=== PATIENT | female | born 1980 | race Two or more races ===

== ENCOUNTER 2025-02-19 11:45 | Inpatient (IN) | payer OTHER ==
[~2025-02-19] VITALS: Ht 157.5 cm; Wt 55.8 kg
[2025-02-19] MEDS ORDERED: INDERAL XL80 MG (12:44)
[2025-02-19] MEDS ORDERED: SYNTHROID100 MCG PO (12:44)
[2025-02-19] MEDS ORDERED: ZESTRIL2.5 MG PO (12:44)
[2025-02-19 13:18] VITALS: BP 103/65
[2025-02-19 13:23] VITALS: BP 132/86
[2025-02-19 15:08] LABS: RH POSITIVE
[2025-02-26] MEDS ORDERED: METRONIDAZOLE/SODIUM CHLORIDE 500 MG/100 ML PIGGYBACK IV ONE (09:00)
[2025-02-26] MEDS ORDERED: CEFAZOLIN SODIUM 1,000 MG VIAL IV ONE (09:00)
[2025-02-26] MEDS ORDERED: POVIDONE-IODINE 118 ML BOTT TOP ONE (09:00)
[2025-02-26] MEDS ORDERED: SURGIFLO APPLICATOR 1 EACH APPL TOP ONE (11:15)
[2025-02-26] MEDS ORDERED: HEMOSTATIC MATRIX WITH THROMBIN KIT TOP ONE (11:15)
[2025-02-26] MEDS ORDERED: MORPHINE SULFATE 4 MG/ML VIAL IV ONE (12:45)
[2025-02-26] MEDS ORDERED: KETOROLAC TROMETHAMINE 30 MG VIAL IV SCH (12:51)
[2025-02-26] MEDS ORDERED: RINGERS SOLUTION,LACTATED 1,000 ML IV SCH (13:00)
[2025-02-26] MEDS ORDERED: KETOROLAC TROMETHAMINE 30 MG VIAL IV ONE (13:10)
[2025-02-26] MEDS ORDERED: BUPIVACAINE HCL 30 ML VIAL IJ ONE (13:15)
[2025-02-26] MEDS ORDERED: ENALAPRILAT DIHYDRATE 1.25 MG/ML VIAL IV PRN (16:45)
[2025-02-26 17:09] VITALS: BP 103/65
[2025-02-27 00:37] VITALS: BP 98/63
[2025-02-27] MEDS ORDERED: LEVOTHYROXINE SODIUM 100 MCG TABLET PO SCH (06:00)
[2025-02-27 06:42] LABS: BASO % 0.5 % (0.1-1.2); EOS # 0.02 (0.04-0.54); EOS % 0.3 % (0.7-7.0); LYMPH # 1.17 (1.18-3.74); LYMPH % 18.7 % (19.3-53.1); MEAN PLATELET VOLUME 9.20 fl (9.4-12.4); MONO # 0.51 (0.24-0.82); MONO % 8.2 % (4.7-12.5); NEUT # 4.50 (1.56-6.13); NEUT % 72.0 % (34.0-71.1); RED CELL DISTRIBUTION WIDTH 13.5 % (11.6-14.4)
[2025-02-27 08:23] VITALS: BP 114/73; O2SAT 100
[2025-02-27] MEDS ORDERED: PROPRANOLOL HCL 80 MG TABLET PO SCH (09:00)
[2025-02-27] MEDS ORDERED: LISINOPRIL 2.5 MG TABLET PO SCH (09:00)
== END 2025-02-27 09:41 | disposition home or self-care (01) | DRG 356 ==
LOC: O/R 02-26 08:22 → OB/GYN 02-26 08:22 → SURG 02-26 11:45 → OB/GYN 02-26 13:12 → SURG 02-26 13:45 → OB/GYN 02-27 09:41
PROVIDERS: ADMIT Student in an Organized Health Care Education/Training Program; ATTEND Student in an Organized Health Care Education/Training Program
PROC: 0UT94ZZ Resection of Uterus, Percutaneous Endoscopic Approach (ICD-10-PCS; 2025-02-26)
PROC: 0UT74ZZ Resection of Bilateral Fallopian Tubes, Percutaneous Endoscopic Approach (ICD-10-PCS; 2025-02-26)
PROC: 0TN74ZZ Release Left Ureter, Percutaneous Endoscopic Approach (ICD-10-PCS; 2025-02-26)
PROC: 0UBF4ZZ Excision of Cul-de-sac, Percutaneous Endoscopic Approach (ICD-10-PCS; 2025-02-26)
PROC: 0TJB8ZZ Inspection of Bladder, Via Natural or Artificial Opening Endoscopic (ICD-10-PCS; 2025-02-26)
PROC: 0DBW4ZZ Excision of Peritoneum, Percutaneous Endoscopic Approach (ICD-10-PCS; principal; 2025-02-26 13:45)
DX: K66.0 Peritoneal adhesions (postprocedural) (postinfection) (principal); K68.2 Retroperitoneal fibrosis; N80.03 Adenomyosis of the uterus; R19.09 Other intra-abdominal and pelvic swelling, mass and lump; N93.9 Abnormal uterine and vaginal bleeding, unspecified; Z90.710 Acquired absence of both cervix and uterus; N80.319 Endometriosis of the anterior cul-de-sac, unspecified depth; N80.329 Endometriosis of the posterior cul-de-sac, unspecified depth; N80.352 Endometriosis of the left pelvic sidewall, unspecified depth; N72 Inflammatory disease of cervix uteri

== ENCOUNTER 2025-03-24 21:09 | Emergency (ER) | payer OTHER ==
[~2025-03-24] VITALS: Ht 160 cm; Wt 72.6 kg
[~2025-03-24 21:09] MED LIST: INDERAL XL80 MG; SYNTHROID100 MCG PO; ZESTRIL2.5 MG PO
[2025-03-24] MEDS ORDERED: 0.9 % SODIUM CHLORIDE 1,000 ML IV STA (22:32)
[2025-03-24 23:31] LABS: BASO % 0.8 % (0.1-1.2); EOS # 0.05 (0.04-0.54); EOS % 0.7 % (0.7-7.0); LYMPH # 1.00 (1.18-3.74); LYMPH % 13.8 % (19.3-53.1); MEAN PLATELET VOLUME 9.00 fl (9.4-12.4); MONO # 0.45 (0.24-0.82); MONO % 6.2 % (4.7-12.5); NEUT # 5.70 (1.56-6.13); NEUT % 78.4 % (34.0-71.1); RED CELL DISTRIBUTION WIDTH 12.6 % (11.6-14.4)
[2025-03-24] MEDS ORDERED: CLONAZEPAM 1 MG TABLET PO STA (23:31)
[2025-03-24 23:49] LABS: INR 1.05
[2025-03-24 23:53] LABS: ALT/SGPT 17.0 U/L (12-78); AST/SGOT 13.0 U/L (15-37); BILIRUBIN TOTAL 0.51 mg/dL (0.3-1.2); BUN CREA RATIO 12.0 (7.0-25.0); CREATININE SERUM 0.69 mg/dL (0.55-1.02); GFR 91.19; GLOBULINA 3.9 G/DL (2.4-3.5); GLUCOSE FASTING 116.0 mg/dL (65-100); OSMOLALITY SERUM 282.0 MOSM/KG (275-295)
== END 2025-03-25 09:37 | disposition home or self-care (01) ==
LOC: ER 21:09
DX: N93.9 Abnormal uterine and vaginal bleeding, unspecified (principal); Z88.8 Allergy status to other drugs, medicaments and biological substances